=== PATIENT | male | born 1940 | race Caucasian/White ===

== ENCOUNTER 2016-09-20 07:33 | Day surgery (SDC) | payer OTHER ==
[2016-09-15 17:50] VITALS: BMI 23.5
[2016-09-20] MEDS: PHENYLEPHRINE 2.5% OPHTH SOLN 15 ML BOTTLE ONE ×3 (08:20→08:30)
[2016-09-20] MEDS: CIPROFLOXACIN 0.3% EYE DROPS 5 ML BOTTLE ONE ×3 (08:20→08:30)
[2016-09-20] MEDS: TROPICAMIDE 1% OPHTH SOLN 15 ML BOTTLE ONE ×3 (08:20→08:30)
[2016-09-20] MEDS: CYCLOPENTOLATE 2% OPHTH SOLN 2 ML BOTTLE ONE ×3 (08:20→08:30)
[2016-09-20] MEDS ORDERED: MIDAZOLAM HCL 2 MG/2 ML SINGLE DOSE VIAL ONE ×2 (09:00→09:33)
[2016-09-20 10:05] VITALS: TEMP 97.8
--- NOTE | 2016-09-20 10:19 | OP ---
DATE OF OPERATION: 09/20/2016 OPERATIVE PROCEDURE: Lens phacoemulsification with posterior chamber intraocular lens placement left eye. PREOPERATIVE DIAGNOSIS: Visually significant cataract of left eye. POSTOPERATIVE DIAGNOSIS: Visually significant cataract of left eye. SURGEON: Raad Espana M.D. ANESTHESIA: MAC PROCEDURE: The patient was brought to the operating room and placed under monitored anesthesia care by Anesthesia. A drop of tetracaine was then placed over the left eye. The patient was then prepped and draped in the usual sterile manner. A speculum was then placed over the left eye. The eye was then well irrigated with copious amounts of BSS (balanced salt solution). The operating microscope was then moved into position. A paracentesis was performed using a 15 degree blade. At this point 0.5 mL of 1% preservative-free lidocaine was injected into the anterior chamber. Amvisc Plus was then injected into the anterior chamber. A clear corneal incision was then formed using a 2.2 mm keratome. A capsulorrhexis was then performed in a continuous circular fashion beginning with a cystotome and completed with Utrata forceps. Hydrodissection was then performed using BSS on a cannula. The phaco probe was then introduced through the corneal wound and the cataract was removed using the phaco chop technique. Approximately 3 seconds of absolute phaco time was used. The remaining cortex was then removed using irrigation and aspiration with an I/A probe. The capsule was then filled with regular Amvisc and the capsule was noted to be intact. A previously selected foldable posterior chamber intraocular lens was then injected into the capsule through the corneal wound using a lens injector. It was then dialed into position using a Sinskey hook. The Amvisc was then removed using irrigation and aspiration. Miostat was then injected through the paracentesis to constrict the pupil. The paracentesis and corneal wound were then hydrated and noted to be watertight. A drop of Maxitrol was then placed over the eye. The speculum was removed and clear shield was taped over the eye. The patient tolerated the procedure well and there were no surgical complications. The patient was asked to follow up in my office the next day. RAAD ESPANA M.D. LAZARO/[id number]
[2016-09-20 10:35] VITALS: BP 112/64; PULSE 64
== END 2016-09-20 10:40 | disposition home or self-care (01) ==
LOC: FASU 07:33
PROVIDERS: ATTEND Ophthalmology
PROC: 08RK3JZ Replacement of Left Lens with Synthetic Substitute, Percutaneous Approach (ICD-10-PCS; principal; 2016-09-20 09:33)
DX: H26.8 Other specified cataract (principal)

== ENCOUNTER 2019-05-13 16:43 | Emergency (ER) | payer OTHER ==
[2019-05-13 16:59] VITALS: BP 141/65; PULSE 67; TEMP 98.3; BMI 23.5
[2019-05-13] MEDS ORDERED: DIPHTH,PERTUSS(ACELL),TET 0.5 ML DISP.SYRIN IM ONE ×2 (17:31→18:39)
--- NOTE | 2019-05-13 17:57 | PDOC ---
Documentation entered by Carmen Ford SCRIBE, acting as scribe for Bandar Syed MD. Bandar Syed MD: This documentation has been prepared by the scribeLogan Maria, SCRIBE, under my direction and personally reviewed by me in its entirety. I confirm that the documentation accurately reflects all work, treatment, procedures, and medical decision making performed by me. History of Present Illness - General Chief Complaint: Injury Stated Complaint: RT EYEBROW LACERATION Time Seen by Provider: 05/13/19 16:46 History Source: Patient - History of Present Illness Initial Comments: 05/13/19 17:40 The patient is a 78 year old male with a significant past medical history of BPH ,HTN, aortic regurgitation, and osteoporosis who presents to the emergency department s/p mechanical fall. As per patient, he states he was walking home, it was drizzling, slipped and fell on the pavement, lacerating his right eyebrow and complains of soreness to his right flank. Denies loss of consciousness. He denies any recent fevers, chills, headache or dizziness. He denies any recent nausea, vomit, diarrhea or constipation. He denies any recent chest pain or shortness of breath. Past History - Past Medical History Allergies/Adverse Reactions: Allergies Allergy/AdvReac Type Severity Reaction Status Date / Time No Known Allergies Allergy Verified 09/20/16 08:22 Home Medications: Ambulatory Orders Cholecalciferol (Vitamin D3) [Vitamin D3 -] 1,000 unit PO DAILY 05/17/16 Enalapril Maleate [Vasotec -] 10 mg PO BID 05/17/16 Finasteride 5 mg PO HS 05/17/16 Multivitamins [Multivit ([facility] Formul[facility])] 1 tab PO DAILY 05/17/16 Tamsulosin HCl [Flomax -] 0.4 mg PO HS 05/17/16 Anemia: No Asthma: No Cancer: No Cardiac Disorders: Yes (Aortic Regurgitation) CVA: No COPD: No CHF: No Dementia: No Diabetes: No GI Disorders: No Disorders: Yes (BPH) HTN: Yes Hypercholesterolemia: No Liver Disease: No Seizures: No Thyroid Disease: No - Surgical History Abdominal Surgery: Yes (Left Inguinal Hernia Repair) Appendectomy: No Cardiac Surgery: No Cholecystectomy: No Lung Surgery: No Neurologic Surgery: No Orthopedic Surgery: No - Psycho Social/Smoking Cessation Hx Smoking History: Never smoked Hx Alcohol Use: No Drug/Substance Use Hx: No Substance Use Type: None Hx Substance Use Treatment: No Review of Systems - Review of Systems Able to Perform ROS?: Yes Comments:: 05/13/19 17:40 A complete review of 10 out of 10 review of systems is taken and is negative apart from what is previously mentioned below and in the HPI. *Physical Exam - Vital Signs Last Vital Signs Temp Pulse Resp BP Pulse Ox 98.3 F 67 20 141/65 100 05/13/19 16:44 05/13/19 16:44 05/13/19 16:44 05/13/19 16:44 05/13/19 16:44 - Physical Exam 05/13/19 17:40 Vitals: Triage Vital signs reviewed General Appearance: no acute distress, well nourished well developed, Head: +2.5cm laceration to his right eyebrow. Normocephalic Eyes: Pupils equal reactive round, extraocular movement intact Ears: TM's normal bilaterally; Nose: Nares patent bilaterally;no nasal congestion Throat: Posterior oropharynx without erythema, mucous membranes moist, Neck: Supple;No Nuchal rigidity Chest Wall: Mild right chest wall tenderness, no bruising Cardiac: Regular rate and rhythm, no murmurs, no rubs, no gallops, Lungs: Clear to auscultation bilateral, good air movement bilaterally, Abdomen: Soft, nondistended, normal bowel sounds, nontender to palpation Extremities: Full range of motion to all extremities, no cyanosis, clubbing, or edema Skin: Warm and dry, no rashes or lesions, no petechiae Neuro: AOX3; Cranial Nerves 2-12 grossly c intact, Strength intact to all extremities, Sensation intact to all extremities, gait normal Psych: normal mood, normal affect Procedures - Laceration/Wound Repair Face Wound Length: to 2.5 cm Wound Explored: clean Wound's Depth, Shape: superficial Irrigated w/ Saline: Yes Betadine Prep: Yes Anesthesia: 1% Lidocaine Suture Size/Type: 6:0 Number of Sutures: 5 ED Treatment Course - RADIOLOGY Radiology Studies Ordered: Category Date Time Status HEAD CT WITHOUT CONTRAST [CT] Stat CT Scan 05/13/19 17:29 Ordered CHEST PA & LAT [RAD] Stat Radiology 05/13/19 17:30 Ordered Medical Decision Making - Medical Decision Making 05/13/19 17:57 Mechanical trip and fall landed on right ribs and right face. Small laceration to right eye normal neurovascular exam no prodrome prior to fall will update tetanus laceration sutured with good approximation patient made aware of scar Head CT chest x-ray ordered 05/13/19 18:43 Chest x-ray with no acute pathology Interpreted by fl Head CT as dictated no acute pathology Patient able to ambulate comfortably around the emergency department no complaints at this time will return to ED in 5 to 7 days for suture removal or immediately for any signs of infection strict head injury precautions discussed at length with patient Findings, the need for follow-up and strict return instructions discussed. Discharge - Discharge Information Problems reviewed: Yes Clinical Impression/Diagnosis: Laceration Minor head injury Qualifiers: Encounter type: initial encounter Qualified Code(s): S09.90XA - Unspecified injury of head, initial encounter Condition: Good Disposition: HOME - Admission No - Follow up/Referral - Patient Discharge Instructions Patient Printed Discharge Instructions: DI for Laceration Repair, DI for Closed Head Injury Additional Instructions: Keep laceration clean dry and covered. Bacitracin twice a day. Return to ED in 5 to 7 days for suture removal or immediately for any signs of infection. Regarding minor head injury return to ED immediately for any severe headache nausea vomiting or for any concerns. Follow-up with your doctor this week. - Post Discharge Activity
== END 2019-05-13 18:50 | disposition home or self-care (01) ==
LOC: FER 16:43
PROC: 3E0234Z Introduction of Serum, Toxoid and Vaccine into Muscle, Percutaneous Approach (ICD-10-PCS; principal; 2019-05-13)
PROC: 0HQ1XZZ Repair Face Skin, External Approach (ICD-10-PCS; 2019-05-13)
DX: S09.90XA Unspecified injury of head, initial encounter (principal); N40.0 Benign prostatic hyperplasia without lower urinary tract symptoms; I10 Essential (primary) hypertension; I35.1 Nonrheumatic aortic (valve) insufficiency; M81.0 Age-related osteoporosis without current pathological fracture
CPT/HCPCS: 12011-25; 70450-TC; 71046-TC-FY; 90471; 90715; 99284-25

== ENCOUNTER 2019-05-19 12:03 | Emergency (ER) | payer OTHER ==
[2019-05-19 12:10] VITALS: BP 129/70; PULSE 72; TEMP 98.1; BMI 24.2
--- NOTE | 2019-05-19 12:26 | PDOC ---
Suture Removal/Wound Check HPI - History of Present Illness Chief Complaint: Suture/Staple Removal(Here) Stated Complaint: SUTURE REMOVAL Time Seen by Provider: 05/19/19 12:14 - Onset of Previous Treatment Comment:: 05/19/19 12:25 Right upper eyelid laceration repaired [address] Syed. Wound is well- healed. [address]. No sign of infection. Sutures removed x5. Wound remained closed. No bleeding or drainage. Bacitracin applied. To continue bacitracin twice daily for 5 more days, follow- up as necessary. Fully ambulatory in no distress at discharge. Past History - Past Medical History Allergies/Adverse Reactions: Allergies Allergy/AdvReac Type Severity Reaction Status Date / Time No Known Allergies Allergy Verified 05/19/19 12:04 Home Medications: Ambulatory Orders Cholecalciferol (Vitamin D3) [Vitamin D3 -] 1,000 unit PO DAILY 05/17/16 Enalapril Maleate [Vasotec -] 10 mg PO BID 05/17/16 Finasteride 5 mg PO HS 05/17/16 Multivitamins [Multivit ([facility] Formul[facility])] 1 tab PO DAILY 05/17/16 Tamsulosin HCl [Flomax -] 0.4 mg PO HS 05/17/16 Anemia: No Asthma: No Cancer: No Cardiac Disorders: Yes (Aortic Regurgitation) CVA: No COPD: No CHF: No Dementia: No Diabetes: No GI Disorders: No Disorders: Yes (BPH) HTN: Yes Hypercholesterolemia: No Liver Disease: No Seizures: No Thyroid Disease: No - Surgical History Abdominal Surgery: Yes (Left Inguinal Hernia Repair) Appendectomy: No Cardiac Surgery: No Cholecystectomy: No Lung Surgery: No Neurologic Surgery: No Orthopedic Surgery: No - Immunization History Immunization Up to Date: Yes - Psycho Social/Smoking Cessation Hx Smoking History: Never smoked Have you smoked in the past 12 months: No Information on smoking cessation initiated: No Hx Alcohol Use: No Drug/Substance Use Hx: No Substance Use Type: None Hx Substance Use Treatment: No *Physical Exam - Vital Signs Last Vital Signs Temp Pulse Resp BP Pulse Ox 98.1 F 72 20 129/70 98 05/19/19 12:04 05/19/19 12:04 05/19/19 12:04 05/19/19 12:04 05/19/19 12:04 Discharge - Discharge Information Problems reviewed: Yes Clinical Impression/Diagnosis: Visit for suture removal Condition: Improved Disposition: HOME - Admission No - Follow up/Referral - Patient Discharge Instructions Patient Printed Discharge Instructions: DI for Suture Removal Additional Instructions: Continue gentle washing of the area, avoid excessive scrubbing or pressure. Apply antibiotic ointment twice daily for 5 more days. Recheck if bleeding or sign of infection. - Post Discharge Activity
== END 2019-05-19 12:31 | disposition home or self-care (01) ==
LOC: FER 12:03
DX: Z48.02 Encounter for removal of sutures (principal)
CPT/HCPCS: 99281-25

== ENCOUNTER 2022-04-09 15:32 | Emergency (ER) | payer OTHER ==
[2022-04-09 15:42] VITALS: BP 156/74; PULSE 73; RESP 20; TEMP 98.2; BMI 21.6
== END 2022-04-09 16:12 | disposition home or self-care (01) ==
LOC: FER 15:32
DX: S01.511A Laceration without foreign body of lip, initial encounter (principal); W10.8XXA Fall (on) (from) other stairs and steps, initial encounter
CPT/HCPCS: 99281-25

== ENCOUNTER 2023-12-04 14:19 | Inpatient (IN) | payer OTHER ==
[2023-12-04] MEDS: SODIUM CHLORIDE 0.9% 500 ML INFUS.BAG IV ONE (15:22)
[2023-12-04] MEDS: ONDANSETRON 4 MG/2 ML VIAL IVPUSH ONE ×2 (15:24→19:30)
[2023-12-04] MEDS ORDERED: ONDANSETRON 4 MG/2 ML VIAL ONE ×2 (15:24→19:26)
[2023-12-04 15:43] LABS: HEMATOCRIT 39.7 % (35.4-49); HEMOGLOBIN 12.8 G/dL (11.7-16.9); MCH 31.7 pg (25.7-33.7); MCHC 32.1 g/dl (32.0-35.9); MEAN CELL VOLUME 98.4 fl (80-96); PLATELET COUNT 155.2 10^3/uL (134-434); RBC 4.03 10^6/uL (4.00-5.60); RDW 13.8 % (11.9-15.9); WHITE BLOOD COUNT 7.4 10^3/uL (4.0-10.8)
[2023-12-04] MEDS ORDERED: FAMOTIDINE 20 MG/50 ML IVPB 0 MG/0 ML MG IVPB ONE (15:43)
[2023-12-04] MEDS ORDERED: FAMOTIDINE 20 MG/50 ML IVPB 20 MG/50 ML MG IVPB ONE ×2 (15:43→15:47)
[2023-12-04] MEDS: FAMOTIDINE 20 MG/50 ML IVPB 20 MG/50 ML MG IVPB ONE (15:44)
[2023-12-04 15:49] LABS: ALBUMIN 4.2 g/dl (3.4-5.0); BILIRUBIN,TOTAL 0.8 mg/dl (0.2-1); CALCIUM 9.7 mg/dl (8.5-10.1); CREATININE 0.8 mg/dl (0.6-1.3); POTASSIUM 3.6 mmol/L (3.5-5.1); TOT PROT 6.8 g/dl (6.4-8.2)
[2023-12-04 15:51] LABS: PLATELET ESTIMATE ADEQUATE
[2023-12-04] MEDS: CIPROFLOXACIN 400 MG/D5W 400 MG/200 ML IVPB IVPB ONE (22:01)
[2023-12-04] MEDS ORDERED: ACETAMINOPHEN 1000 MG/100 ML BAG IVPB PRN (22:04)
[2023-12-04] MEDS: SODIUM PHOSPHATE/NA BIPHOS 133 ML ENEMA PR ONE (22:05)
[2023-12-04 22:14] LABS: MAGNESIUM 1.9 mg/dL (1.8-2.4); PHOSPHOROUS 3.4 (2.5-4.9)
[2023-12-04] MEDS: D5-NS + 20 MEQ KCL - 20 MEQ/1,000 ML INFUS.BAG IV SCH (23:27)
[2023-12-05 08:13] LABS: INR 1.21 (0.83-1.09); PROTHROMBIN TIME (PATIENT) 13.7 SEC (9.7-13.0)
[2023-12-05 08:15] LABS: ACTIVATED PTT 36.4 SECONDS (25.2-36.5)
[2023-12-05] MEDS ORDERED: MAGNESIUM CITRATE 300 ML BOTTLE PO ONE (08:17)
[2023-12-05 08:33] LABS: CALCIUM 8.8 mg/dl (8.5-10.1); CREATININE 0.8 mg/dl (0.6-1.3); POTASSIUM 3.4 mmol/L (3.5-5.1)
[2023-12-05] MEDS ORDERED: KCL 10 MEQ IVPB 10 MEQ/100 ML INFUS.BAG IVPB SCH (09:00)
[2023-12-05] MEDS ORDERED: cefTRIAXone SODIUM 1 GM VIAL ONE (09:41)
[2023-12-05] MEDS: CEFTRIAXONE 1 GM in DEXTROSE 5%-WATER - 50 ML IVPB SCH (09:46)
[2023-12-05] MEDS: SIMETHICONE 80 MG TAB.CHEW (FP) PO SCH (09:47)
[2023-12-05] MEDS: ENALAPRIL MALEATE 10 MG TABLET PO SCH (09:47)
[2023-12-05] MEDS: MAGNESIUM CITRATE 300 ML BOTTLE PO ONE (09:47)
[2023-12-05] MEDS: LEVOTHYROXINE NA 25 MCG TABLET (FP) PO SCH (09:47)
[2023-12-05 10:57] LABS: BASO % 0.4 % (0-2.0); EOS % 3.2 % (0-4.5); HEMATOCRIT 31.6 % (35.4-49); HEMOGLOBIN 10.8 GM/dL (11.7-16.9); LYMPH % 5.6 % (8-40); MCH 33.3 pg (25.7-33.7); MCHC 34.2 g/dl (32.0-35.9); MEAN CELL VOLUME 97.3 fl (80-96); MEAN PLT VOLUME 9.4 fl (7.5-11.1); MONO % 7.9 % (3.8-10.2); NEUT % 82.9 % (42.8-82.8); PLATELET COUNT 126 10^3/uL (134-434); RBC 3.25 M/mm3 (4.00-5.60); RDW 13.2 % (11.9-15.9); WHITE BLOOD COUNT 6.9 K/mm3 (4.0-10.0)
[2023-12-05] MEDS: HEPARIN NA (PORCINE) 5,000 UNITS/ML 1ML VIAL SQ SCH (13:42)
[2023-12-05] MEDS: MINERAL OIL ENEMA 133 ML ENEMA RC ONE (17:13)
[2023-12-05] MEDS: SENNOSIDES 8.6MG TABLET (FP) PO SCH (21:03)
[2023-12-05] MEDS: FINASTERIDE 5 MG TABLET (FP) PO SCH (21:04)
[2023-12-05] MEDS ORDERED: ACETAMINOPHEN 325 MG TABLET (FP) PO PRN ×2 (22:00)
[2023-12-06 07:50] LABS: HEMOGLOBIN 11.9 G/dL (11.7-16.9); MCH 33.2 pg (25.7-33.7); MEAN CELL VOLUME 97.9 fl (80-96); MEAN PLT VOLUME 9.2 fl (7.5-11.1); PLATELET COUNT 129.4 10^3/uL (134-434); RBC 3.58 10^6/uL (4.00-5.60); RDW 13.7 % (11.9-15.9); WHITE BLOOD COUNT 5.8 10^3/uL (4.0-10.8)
[2023-12-06 09:20] LABS: CALCIUM 9.2 mg/dl (8.5-10.1); CREATININE 0.8 mg/dl (0.6-1.3); PHOSPHOROUS 2.8 (2.5-4.9); POTASSIUM 3.4 mmol/L (3.5-5.1)
[2023-12-06] MEDS: SENNOSIDES 8.6MG TABLET (FP) PO SCH (10:46)
[2023-12-06] MEDS: DOCUSATE SODIUM 100 MG CAPSULE (FP) PO SCH (10:53)
[2023-12-06] MEDS: SODIUM CHLORIDE 1,000 ML IV SCH (11:28)
[2023-12-06] MEDS: TRIMETHOBENZAMIDE HCL 200MG/2ML INJ IM PRN (14:27)
[2023-12-06] MEDS: POLYETHYLENE GLYCOL (HEALTHYLAX) 3350 17 GM PACKET PO SCH (21:45)
[2023-12-07 07:21] VITALS: BMI 20.7
[2023-12-07 09:11] LABS: INR 1.27 (0.83-1.09); PROTHROMBIN TIME (PATIENT) 14.5 SEC (9.7-13.0)
[2023-12-07 09:14] LABS: BASO % 0.1 % (0-2.0); EOS % 0.1 % (0-4.5); HEMATOCRIT 33.5 % (35.4-49); HEMOGLOBIN 11.4 GM/dL (11.7-16.9); LYMPH % 3.2 % (8-40); MCH 33.4 pg (25.7-33.7); MCHC 34.2 g/dl (32.0-35.9); MEAN CELL VOLUME 97.8 fl (80-96); MEAN PLT VOLUME 9.7 fl (7.5-11.1); MONO % 7.5 % (3.8-10.2); NEUT % 89.1 % (42.8-82.8); PLATELET COUNT 112 10^3/uL (134-434); RBC 3.42 M/mm3 (4.00-5.60); RDW 13.2 % (11.9-15.9); WHITE BLOOD COUNT 8.7 K/mm3 (4.0-10.0)
[2023-12-07 09:31] LABS: CHLORIDE 106 mmol/L (98-107); SODIUM 140 mmol/L (136-145)
[2023-12-07 09:32] LABS: POTASSIUM 2.8 mmol/L (3.5-5.1)
[2023-12-07 09:38] LABS: ALBUMIN 3.2 g/dl (3.4-5.0); ANION GAP 8 mmol/L (4-13); BLOOD UREA NITROGEN 25.1 mg/dL (7-18); CALCIUM 8.5 mg/dL (8.5-10.1); CO2 27 mmol/L (21-32); GLUCOSE,RANDOM 116 mg/dL (74-106); MAGNESIUM 2.1 mg/dL (1.8-2.4)
[2023-12-07 09:39] LABS: SGOT/AST 21 U/L (15-37); SGPT/ALT 17 U/L (13-61)
[2023-12-07 09:41] LABS: BILIRUBIN,TOTAL 0.7 mg/dL (0.2-1); CREATININE 0.7 mg/dL (0.55-1.3); TOT PROT 6.1 g/dl (6.4-8.2)
[2023-12-07 09:42] LABS: ALK PHOS 62 U/L (45-117); PHOSPHOROUS 3.1 mg/dL (2.5-4.9)
[2023-12-07] MEDS: KCL 10 MEQ IVPB 10 MEQ/100 ML INFUS.BAG IVPB SCH (12:19)
[2023-12-07] MEDS: POTASSIUM CHLORIDE ORAL LIQUID 20 MEQ/15 ML PO ONE (22:20)
[2023-12-08 10:08] LABS: BASO % 0.1 % (0-2.0); EOS % 0.1 % (0-4.5); HEMOGLOBIN 10.5 GM/dL (11.7-16.9); LYMPH % 4.2 % (8-40); MCH 33.1 pg (25.7-33.7); MCHC 33.9 g/dl (32.0-35.9); MEAN CELL VOLUME 97.6 fl (80-96); MEAN PLT VOLUME 9.9 fl (7.5-11.1); MONO % 6.8 % (3.8-10.2); NEUT % 88.8 % (42.8-82.8); PLATELET COUNT 96 10^3/uL (134-434); RBC 3.18 M/mm3 (4.00-5.60); RDW 12.8 % (11.9-15.9); WHITE BLOOD COUNT 6.5 K/mm3 (4.0-10.0)
[2023-12-08 10:35] LABS: CHLORIDE 110 mmol/L (98-107); SODIUM 143 mmol/L (136-145)
[2023-12-08 10:40] LABS: POTASSIUM 2.8 mmol/L (3.5-5.1)
[2023-12-08 11:01] LABS: ALBUMIN 2.8 g/dl (3.4-5.0); ANION GAP 8 mmol/L (4-13); CO2 25 mmol/L (21-32); MAGNESIUM 2.1 mg/dL (1.8-2.4)
[2023-12-08 11:02] LABS: BLOOD UREA NITROGEN 23.6 mg/dL (7-18); GLUCOSE,RANDOM 123 mg/dL (74-106)
[2023-12-08 11:04] LABS: SGPT/ALT 17 U/L (13-61)
[2023-12-08 11:05] LABS: CREATININE 0.6 mg/dL (0.55-1.3); SGOT/AST 21 U/L (15-37)
[2023-12-08 11:06] LABS: BILIRUBIN,TOTAL 0.7 mg/dL (0.2-1); TOT PROT 5.4 g/dl (6.4-8.2)
[2023-12-08 11:07] LABS: ALK PHOS 58 U/L (45-117)
[2023-12-08] MEDS: KCL 10 MEQ IVPB 10 MEQ/100 ML INFUS.BAG IVPB SCH (12:45)
[2023-12-08] MEDS: POTASSIUM CHLORIDE ORAL LIQUID 20 MEQ/15 ML PO ONE (12:56)
[2023-12-08] MEDS ORDERED: SENNOSIDES 8.6MG TABLET (FP) PO PRN (13:02)
[2023-12-08] MEDS: ONDANSETRON 4 MG/2 ML VIAL IVPUSH PRN (17:41)
[2023-12-09] MEDS ORDERED: MAG HYDROX/AL HYDROX/SIMETH 30 ML UNIT-DOSE CUP PO PRN (02:25)
[2023-12-09 10:42] LABS: POTASSIUM 3.1 mmol/L (3.5-5.1)
[2023-12-09 10:44] LABS: BLOOD UREA NITROGEN 22.9 mg/dL (7-18); CALCIUM 8.1 mg/dL (8.5-10.1)
[2023-12-09 10:48] LABS: CREATININE 0.6 mg/dL (0.55-1.3)
[2023-12-09] MEDS: POTASSIUM CHLORIDE TABS 20 MEQ TABLET.ER (FP) PO ONE (12:28)
[2023-12-09] MEDS: KCL 10 MEQ IVPB 10 MEQ/100 ML INFUS.BAG IVPB SCH (12:28)
[2023-12-10 09:45] LABS: HEMATOCRIT 32.9 % (35.4-49); HEMOGLOBIN 11.6 GM/dL (11.7-16.9); MCH 33.6 pg (25.7-33.7); MCHC 35.3 g/dl (32.0-35.9); MEAN PLT VOLUME 10.2 fl (7.5-11.1); PLATELET COUNT 99 10^3/uL (134-434); RBC 3.47 M/mm3 (4.00-5.60); WHITE BLOOD COUNT 5.3 K/mm3 (4.0-10.0)
[2023-12-10 09:58] LABS: POTASSIUM 3.5 mmol/L (3.5-5.1)
[2023-12-10 10:04] LABS: ALBUMIN 2.6 g/dl (3.4-5.0); BLOOD UREA NITROGEN 20.2 mg/dL (7-18); CALCIUM 8.2 mg/dL (8.5-10.1)
[2023-12-10 10:07] LABS: CREATININE 0.5 mg/dL (0.55-1.3)
[2023-12-10 10:08] LABS: BILIRUBIN,TOTAL 0.8 mg/dL (0.2-1); TOT PROT 5.2 g/dl (6.4-8.2)
[2023-12-11 10:34] LABS: BASO % 0.1 % (0-2.0); EOS % 3.1 % (0-4.5); MCH 33.5 pg (25.7-33.7); MCHC 35.4 g/dl (32.0-35.9); MEAN CELL VOLUME 94.4 fl (80-96); MEAN PLT VOLUME 9.9 fl (7.5-11.1); MONO % 7.3 % (3.8-10.2); NEUT % 84.5 % (42.8-82.8); PLATELET COUNT 120 10^3/uL (134-434); RDW 12.7 % (11.9-15.9); WHITE BLOOD COUNT 6.1 K/mm3 (4.0-10.0)
[2023-12-11 10:38] LABS: INR 1.18 (0.83-1.09); PROTHROMBIN TIME (PATIENT) 13.5 SEC (9.7-13.0)
[2023-12-11] MEDS: POLYETHYLENE GLYCOL 3350 255 GM BTL PO ONE (11:00)
[2023-12-11 11:01] LABS: POTASSIUM 3.3 mmol/L (3.5-5.1)
[2023-12-11 11:12] LABS: CALCIUM 7.8 mg/dL (8.5-10.1)
[2023-12-11 11:13] LABS: ALBUMIN 2.7 g/dl (3.4-5.0); BLOOD UREA NITROGEN 18.5 mg/dL (7-18)
[2023-12-11 11:16] LABS: CREATININE 0.6 mg/dL (0.55-1.3)
[2023-12-11 11:17] LABS: BILIRUBIN,TOTAL 0.8 mg/dL (0.2-1); TOT PROT 5.2 g/dl (6.4-8.2)
[2023-12-11] MEDS: LACTATED RINGERS SOLUTION 1,000 ML/1,000 ML INFUS.BAG IV SCH (13:00)
[2023-12-11] MEDS: NEOMYCIN SO4 500 MG TABLET PO SCH (13:12)
[2023-12-11] MEDS: metroNIDAZOLE 500 MG TABLET PO SCH (13:12)
[2023-12-11] MEDS: KCL 10 MEQ IVPB 10 MEQ/100 ML INFUS.BAG IVPB SCH (13:19)
[2023-12-11] MEDS: BISACODYL 5 MG TABLET.DR (FP) PO ONE (14:31)
[2023-12-12] MEDS ORDERED: BENZOIN/ALOE VERA/STORAX/TOLU 58 ML BOTTLE ONE (08:58)
[2023-12-12 09:53] LABS: BASO % 0.1 % (0-2.0); EOS % 4.6 % (0-4.5); HEMATOCRIT 32.6 % (35.4-49); HEMOGLOBIN 11.6 GM/dL (11.7-16.9); INR 1.24 (0.83-1.09); LYMPH % 4.1 % (8-40); MCH 33.8 pg (25.7-33.7); MCHC 35.6 g/dl (32.0-35.9); MEAN CELL VOLUME 95.1 fl (80-96); MEAN PLT VOLUME 9.9 fl (7.5-11.1); MONO % 8.1 % (3.8-10.2); NEUT % 83.1 % (42.8-82.8); PLATELET COUNT 117 10^3/uL (134-434); PROTHROMBIN TIME (PATIENT) 13.9 SEC (9.7-13.0); RBC 3.42 M/mm3 (4.00-5.60); RDW 13.1 % (11.9-15.9); WHITE BLOOD COUNT 6.7 K/mm3 (4.0-10.0)
[2023-12-12] MEDS ORDERED: INDOCYANINE GREEN 25 MG/10 ML VIAL IVPUSH ONE (09:54)
[2023-12-12] MEDS ORDERED: cefOXitin SODIUM 2 GM VIAL (RESTRICTED TO ID) IVPB ONE ×2 (09:55→15:00)
[2023-12-12] MEDS ORDERED: BUPIVACAINE HCL/PF 0.25% (2.5MG/ML) 10 ML VIAL ONE (09:55)
[2023-12-12] MEDS ORDERED: PROPOFOL 20 ML ONE (10:13)
[2023-12-12 10:17] LABS: ALBUMIN 2.5 g/dl (3.4-5.0); CALCIUM 7.9 mg/dL (8.5-10.1)
[2023-12-12 10:18] LABS: MAGNESIUM 1.8 mg/dL (1.8-2.4)
[2023-12-12 10:20] LABS: BLOOD UREA NITROGEN 18.5 mg/dL (7-18)
[2023-12-12 10:21] LABS: CREATININE 0.5 mg/dL (0.55-1.3)
[2023-12-12 10:22] LABS: BILIRUBIN,TOTAL 0.7 mg/dL (0.2-1); TOT PROT 4.8 g/dl (6.4-8.2)
[2023-12-12] MEDS ORDERED: SUCCINYLCHOLINE CHLORIDE 200 MG/10 ML SYRINGE ONE (10:27)
[2023-12-12] MEDS ORDERED: ROCURONIUM BROMIDE 50 MG/5 ML SYRINGE ONE ×2 (10:27→12:18)
[2023-12-12] MEDS: cefOXitin SODIUM 2 GM VIAL (RESTRICTED TO ID) IVPB ONE (10:57)
[2023-12-12] MEDS: BUPIVACAINE HCL/PF 0.25% (2.5MG/ML) 10 ML VIAL IJ ONE ×2 (11:35)
[2023-12-12] MEDS ORDERED: ceFAZolin SODIUM 1 GM VIAL ONE (14:53)
[2023-12-12] MEDS ORDERED: HYDROCORTISONE SOD SUCCINATE 100 MG/2 ML VIAL ONE (15:36)
[2023-12-12] MEDS ORDERED: HYDROmorphone HCl 2 MG/ML VIAL ONE (15:37)
[2023-12-12] MEDS ORDERED: ONDANSETRON 4 MG/2 ML VIAL ONE (15:41)
[2023-12-12] MEDS ORDERED: SUGAMMADEX SODIUM 200 MG/2 ML VIAL ONE (16:13)
[2023-12-12] MEDS ORDERED: ONDANSETRON 4 MG/2 ML VIAL IVPUSH PRN (17:38)
[2023-12-12] MEDS ORDERED: oxyCODONE HCL 5 MG TABLET PO PRN ×2 (17:38)
[2023-12-12] MEDS: KCL 10 MEQ IVPB 10 MEQ/100 ML INFUS.BAG IVPB SCH ×2 (18:00→18:27)
[2023-12-12] MEDS: ENALAPRIL MALEATE 10 MG TABLET PO SCH (21:46)
[2023-12-12] MEDS: LACTATED RINGERS SOLUTION 1,000 ML/1,000 ML INFUS.BAG IV SCH (21:46)
[2023-12-12] MEDS: FINASTERIDE 5 MG TABLET (FP) PO SCH (21:47)
[2023-12-12] MEDS: ACETAMINOPHEN 1000 MG/100 ML BAG IVPB SCH (22:04)
[2023-12-12] MEDS: CEFOXITIN SODIUM 2 GM in DEXTROSE 5%-WATER - 100 ML IVPB SCH (22:07)
[2023-12-12 23:33] VITALS: RESP 18
[2023-12-13] MEDS: LEVOTHYROXINE NA 25 MCG TABLET (FP) PO SCH (06:26)
[2023-12-13 09:46] LABS: BASO % 0.2 % (0-2.0); EOS % 1.7 % (0-4.5); HEMATOCRIT 34.4 % (35.4-49); HEMOGLOBIN 11.8 GM/dL (11.7-16.9); LYMPH % 3.1 % (8-40); MCHC 34.2 g/dl (32.0-35.9); MEAN CELL VOLUME 96.5 fl (80-96); MEAN PLT VOLUME 9.4 fl (7.5-11.1); MONO % 7.3 % (3.8-10.2); NEUT % 87.7 % (42.8-82.8); PLATELET COUNT 137 10^3/uL (134-434); RBC 3.56 M/mm3 (4.00-5.60); RDW 13.1 % (11.9-15.9); WHITE BLOOD COUNT 7.2 K/mm3 (4.0-10.0)
[2023-12-13 11:16] LABS: POTASSIUM 3.3 mmol/L (3.5-5.1)
[2023-12-13] MEDS: ENOXAPARIN NA (PORCINE) 40 MG/0.4 ML DISP.SYRIN SQ SCH (11:17)
[2023-12-13 11:24] LABS: ALBUMIN 2.3 g/dl (3.4-5.0)
[2023-12-13 11:26] LABS: BLOOD UREA NITROGEN 17.6 mg/dL (7-18)
[2023-12-13 11:27] LABS: CREATININE 1.1 mg/dL (0.55-1.3)
[2023-12-13 11:29] LABS: BILIRUBIN,TOTAL 0.7 mg/dL (0.2-1); TOT PROT 4.6 g/dl (6.4-8.2)
[2023-12-13 11:39] LABS: CALCIUM 7.8 mg/dL (8.5-10.1)
[2023-12-13 11:41] LABS: MAGNESIUM 1.8 mg/dL (1.8-2.4)
[2023-12-13] MEDS: POTASSIUM CHLORIDE ORAL LIQUID 20 MEQ/15 ML PO ONE (13:23)
[2023-12-13] MEDS: POTASSIUM CHLORIDE TABS 20 MEQ TABLET.ER (FP) PO SCH (22:40)
[2023-12-13] MEDS: ACETAMINOPHEN 500 MG TABLET (FP) PO SCH (22:40)
[2023-12-13] MEDS: KCL 10 MEQ IVPB 10 MEQ/100 ML INFUS.BAG IVPB SCH (23:53)
[2023-12-14 09:35] LABS: BASO % 0.1 % (0-2.0); EOS % 2.6 % (0-4.5); HEMATOCRIT 31.1 % (35.4-49); HEMOGLOBIN 10.7 GM/dL (11.7-16.9); LYMPH % 3.1 % (8-40); MCH 33.6 pg (25.7-33.7); MCHC 34.4 g/dl (32.0-35.9); MEAN CELL VOLUME 97.7 fl (80-96); MEAN PLT VOLUME 8.9 fl (7.5-11.1); MONO % 7.6 % (3.8-10.2); NEUT % 86.6 % (42.8-82.8); PLATELET COUNT 128 10^3/uL (134-434); RBC 3.18 M/mm3 (4.00-5.60); RDW 13.3 % (11.9-15.9); WHITE BLOOD COUNT 6.1 K/mm3 (4.0-10.0)
[2023-12-14 09:56] LABS: POTASSIUM 3.6 mmol/L (3.5-5.1)
[2023-12-14 10:04] LABS: CREATININE 0.6 mg/dL (0.55-1.3)
[2023-12-14] MEDS: TAMSULOSIN HCL 0.4 MG CAP PO ONE (13:52)
[2023-12-14] MEDS ORDERED: TAMSULOSIN HCL 0.4 MG CAP PO SCH (16:40)
[2023-12-14] MEDS: CEFOXITIN SODIUM 2 GM in DEXTROSE 5%-WATER 100 ML IVPB SCH (18:03)
[2023-12-14] MEDS: TAMSULOSIN HCL 0.4 MG CAP PO SCH (18:11)
[2023-12-15 08:32] LABS: BASO % 0.3 % (0-2.0); EOS % 5.3 % (0-4.5); HEMATOCRIT 29.5 % (35.4-49); HEMOGLOBIN 10.1 GM/dL (11.7-16.9); LYMPH % 3.8 % (8-40); MCH 33.5 pg (25.7-33.7); MCHC 34.4 g/dl (32.0-35.9); MEAN CELL VOLUME 97.2 fl (80-96); MEAN PLT VOLUME 8.7 fl (7.5-11.1); MONO % 8.6 % (3.8-10.2); PLATELET COUNT 133 10^3/uL (134-434); RBC 3.03 M/mm3 (4.00-5.60); RDW 13.2 % (11.9-15.9); WHITE BLOOD COUNT 5.1 K/mm3 (4.0-10.0)
[2023-12-15 08:40] LABS: POTASSIUM 3.5 mmol/L (3.5-5.1)
[2023-12-15 08:48] LABS: BLOOD UREA NITROGEN 15.3 mg/dL (7-18); MAGNESIUM 1.8 mg/dL (1.8-2.4)
[2023-12-15 08:50] LABS: CALCIUM 7.9 mg/dL (8.5-10.1)
[2023-12-15 08:51] LABS: CREATININE 0.6 mg/dL (0.55-1.3)
[2023-12-15] MEDS: CEFOXITIN SODIUM 2 GM in DEXTROSE 5%-WATER 100 ML IVPB SCH (18:18)
[2023-12-16 09:13] LABS: BASO % 0.3 % (0-2.0); EOS % 3.2 % (0-4.5); HEMATOCRIT 31.5 % (35.4-49); HEMOGLOBIN 10.9 GM/dL (11.7-16.9); LYMPH % 3.9 % (8-40); MCH 33.8 pg (25.7-33.7); MCHC 34.7 g/dl (32.0-35.9); MEAN CELL VOLUME 97.3 fl (80-96); MEAN PLT VOLUME 8.4 fl (7.5-11.1); MONO % 7.3 % (3.8-10.2); NEUT % 85.3 % (42.8-82.8); PLATELET COUNT 153 10^3/uL (134-434); RBC 3.23 M/mm3 (4.00-5.60); RDW 13.6 % (11.9-15.9); WHITE BLOOD COUNT 5.4 K/mm3 (4.0-10.0)
[2023-12-16 09:33] LABS: POTASSIUM 3.7 mmol/L (3.5-5.1)
[2023-12-16 09:37] LABS: BLOOD UREA NITROGEN 10.4 mg/dL (7-18); MAGNESIUM 1.8 mg/dL (1.8-2.4)
[2023-12-16 09:40] LABS: CREATININE 0.6 mg/dL (0.55-1.3)
[2023-12-16 09:41] LABS: CALCIUM 7.6 mg/dL (8.5-10.1)
[2023-12-16] MEDS: PSYLLIUM 5.85 GM PACKET PO SCH (14:52)
[2023-12-16] MEDS ORDERED: SENNOSIDES 8.6MG TABLET (FP) PO PRN (16:02)
[2023-12-16] MEDS: DOCUSATE SODIUM 100 MG CAPSULE (FP) PO SCH (22:05)
[2023-12-17] MEDS: ACETAMINOPHEN 1000 MG/100 ML BAG IVPB ONE (03:49)
[2023-12-17 09:39] LABS: BASO % 0.3 % (0-2.0); EOS % 5.1 % (0-4.5); HEMATOCRIT 30.2 % (35.4-49); HEMOGLOBIN 10.4 GM/dL (11.7-16.9); LYMPH % 6.9 % (8-40); MCH 33.7 pg (25.7-33.7); MCHC 34.3 g/dl (32.0-35.9); MEAN CELL VOLUME 98.2 fl (80-96); MEAN PLT VOLUME 8.5 fl (7.5-11.1); MONO % 9.1 % (3.8-10.2); NEUT % 78.6 % (42.8-82.8); PLATELET COUNT 156 10^3/uL (134-434); RBC 3.07 M/mm3 (4.00-5.60); RDW 13.9 % (11.9-15.9); WHITE BLOOD COUNT 4.3 K/mm3 (4.0-10.0)
[2023-12-17 10:07] LABS: POTASSIUM 4.3 mmol/L (3.5-5.1)
[2023-12-17 10:08] LABS: CALCIUM 7.8 mg/dL (8.5-10.1)
[2023-12-17 10:09] LABS: BLOOD UREA NITROGEN 11.3 mg/dL (7-18)
[2023-12-17 10:12] LABS: CREATININE 0.5 mg/dL (0.55-1.3)
[2023-12-18 08:36] LABS: BASO % 0.5 % (0-2.0); EOS % 4.6 % (0-4.5); HEMOGLOBIN 10.8 GM/dL (11.7-16.9); LYMPH % 5.6 % (8-40); MCH 33.8 pg (25.7-33.7); MCHC 34.9 g/dl (32.0-35.9); MEAN CELL VOLUME 96.7 fl (80-96); MEAN PLT VOLUME 8.2 fl (7.5-11.1); MONO % 8.9 % (3.8-10.2); NEUT % 80.4 % (42.8-82.8); PLATELET COUNT 188 10^3/uL (134-434); RBC 3.21 M/mm3 (4.00-5.60); RDW 13.6 % (11.9-15.9); WHITE BLOOD COUNT 4.5 K/mm3 (4.0-10.0)
[2023-12-18 08:55] LABS: POTASSIUM 4.1 mmol/L (3.5-5.1)
[2023-12-18 09:00] LABS: CALCIUM 8.1 mg/dL (8.5-10.1)
[2023-12-18 09:01] LABS: BLOOD UREA NITROGEN 13.2 mg/dL (7-18)
[2023-12-18 09:04] LABS: CREATININE 0.5 mg/dL (0.55-1.3)
[2023-12-18 15:17] VITALS: BP 125/63; PULSE 101; TEMP 97.7
== END 2023-12-19 03:22 | DRG 330 ==
LOC: FER 14:19 → INTOOBSV 19:35 → FM/S 19:35 → OBSVTOIN 12-06 16:10 → J8W 12-07 05:15
PROVIDERS: ADMIT Internal Medicine; ATTEND Nurse Practitioner Acute Care
PROC: 0DJD8ZZ Inspection of Lower Intestinal Tract, Via Natural or Artificial Opening Endoscopic (ICD-10-PCS; 2023-12-07)
PROC: 0D9P80Z Drainage of Rectum with Drainage Device, Via Natural or Artificial Opening Endoscopic (ICD-10-PCS; 2023-12-07)
PROC: 8E0W4CZ Robotic Assisted Procedure of Trunk Region, Percutaneous Endoscopic Approach (ICD-10-PCS; 2023-12-12)
PROC: 0DTN4ZZ Resection of Sigmoid Colon, Percutaneous Endoscopic Approach (ICD-10-PCS; principal; 2023-12-12 10:30)
DX: K56.2 Volvulus (principal); E46 Unspecified protein-calorie malnutrition; I10 Essential (primary) hypertension; E03.9 Hypothyroidism, unspecified; N40.0 Benign prostatic hyperplasia without lower urinary tract symptoms; Z68.20 Body mass index [BMI] 20.0-20.9, adult; E87.6 Hypokalemia; I35.1 Nonrheumatic aortic (valve) insufficiency; K59.09 Other constipation; K62.89 Other specified diseases of anus and rectum
CPT/HCPCS: 36415; 74018-TC-FY; 74019-TC-FY; 74176-TC; 80048; 80053; 83690; 83735; 84100; 85025; 85027; 85610; 85730; 86140; 86850; 86900; 86901; 88304-TC; 88307-TC; 93005; 93010; 93306-TC; 94760; 97116-GP; 97162-GP; 99285-25; G0378; J0131; J1644

== ENCOUNTER 2024-02-06 10:15 | Inpatient (IN) | payer OTHER ==
[2024-02-06 11:07] LABS: HEMATOCRIT 35.1 % (35.4-49); HEMOGLOBIN 11.5 G/dL (11.7-16.9); MCH 32.7 pg (25.7-33.7); MCHC 32.8 g/dl (32.0-35.9); MEAN CELL VOLUME 99.3 fl (80-96); MEAN PLT VOLUME 8.9 fl (7.5-11.1); PLATELET COUNT 225.1 10^3/uL (134-434); RBC 3.53 10^6/uL (4.00-5.60); RDW 14.4 % (11.9-15.9); WHITE BLOOD COUNT 6.9 10^3/uL (4.0-10.8)
[2024-02-06 11:12] LABS: ALBUMIN 3.2 g/dl (3.4-5.0); BILIRUBIN,TOTAL 0.5 mg/dl (0.2-1); CALCIUM 8.4 mg/dl (8.5-10.1); CREATININE 0.8 mg/dl (0.6-1.3); MAGNESIUM 1.9 mg/dL (1.8-2.4); PHOSPHOROUS 2.8 (2.5-4.9); POTASSIUM 3.5 mmol/L (3.5-5.1); TOT PROT 6.2 g/dl (6.4-8.2)
[2024-02-06 11:15] LABS: INR 1.31 (0.83-1.09); PROTHROMBIN TIME (PATIENT) 14.8 SEC (9.7-13.0)
[2024-02-06 11:18] LABS: ACTIVATED PTT 35.9 SECONDS (25.2-36.5)
[2024-02-06 12:09] LABS: N-TERMINAL BNP 1916.3 pg/ml (5-450)
[2024-02-06] MEDS ORDERED: HEPARIN NA (PORCINE) 5,000 UNITS/ML 1ML VIAL IVPUSH PRN ×3 (14:51→15:14)
[2024-02-06] MEDS: HEPARIN NA (PORCINE) 5,000 UNITS/ML 1ML VIAL IVPUSH ONE (15:00)
[2024-02-06] MEDS: HEPARIN INFUSION - 25,000 UNITS/500 ML INFUS.BAG IVPB SCH ×2 (15:15→15:24)
[2024-02-07 00:55] LABS: HIV INTERPRETATION NEGATIVE (NEGATIVE)
[2024-02-07] MEDS ORDERED: MAGNESIUM SULF 50% (8.12 MEQ/2 ML-1 GM VIAL) IVPB ONE (06:20)
[2024-02-07] MEDS: LEVOTHYROXINE NA 25 MCG TABLET (FP) PO SCH (06:54)
[2024-02-07] MEDS: POTASSIUM CHLORIDE TABS 10 MEQ TABLET.ER (FP) PO ONE (06:54)
[2024-02-07] MEDS: INSULIN ASPART SLIDING SCALE (NOVOLOG) 1 VIAL SQ SCH (07:15)
[2024-02-07 08:28] LABS: HEMATOCRIT 29.1 % (35.4-49); HEMOGLOBIN 9.8 GM/dL (11.7-16.9); MCH 32.8 pg (25.7-33.7); MCHC 33.7 g/dl (32.0-35.9); MEAN CELL VOLUME 97.4 fl (80-96); MEAN PLT VOLUME 8.3 fl (7.5-11.1); PLATELET COUNT 211 10^3/uL (134-434); RBC 2.99 M/mm3 (4.00-5.60); RDW 14.4 % (11.9-15.9); WHITE BLOOD COUNT 5.2 K/mm3 (4.0-10.0)
[2024-02-07 08:29] LABS: ALBUMIN 2.3 g/dl (3.4-5.0); BLOOD UREA NITROGEN 16.7 mg/dL (7-18); CALCIUM 7.8 mg/dL (8.5-10.1)
[2024-02-07 08:30] LABS: MAGNESIUM 1.9 mg/dL (1.8-2.4)
[2024-02-07] MEDS ORDERED: MAGNESIUM 2GM/50ML STERILE WATER IVPB IVPB ONE (08:30)
[2024-02-07 08:32] LABS: CREATININE 0.6 mg/dL (0.55-1.3)
[2024-02-07 08:33] LABS: PHOSPHOROUS 2.7 mg/dL (2.5-4.9)
[2024-02-07 08:34] LABS: BILIRUBIN,TOTAL 0.5 mg/dL (0.2-1); TOT PROT 5.6 g/dl (6.4-8.2)
[2024-02-07 09:01] LABS: RETICULOCYTES 2.77 % (0.5-1.5)
[2024-02-07] MEDS: FINASTERIDE 5 MG TABLET (FP) PO SCH (11:21)
[2024-02-07] MEDS: TAMSULOSIN HCL 0.4 MG CAP PO SCH (11:22)
[2024-02-07] MEDS: ENALAPRIL MALEATE 10 MG TABLET PO SCH (11:22)
[2024-02-07] MEDS: ESCITALOPRAM OXALATE 10 MG TABLET PO SCH (11:22)
[2024-02-07] MEDS: MAGNESIUM 2GM/50ML STERILE WATER IVPB IVPB ONE (11:23)
[2024-02-07] MEDS: POTASSIUM CHLORIDE TABS 20 MEQ TABLET.ER (FP) PO ONE (12:04)
[2024-02-07] MEDS: HEPARIN NA (PORCINE) 5,000 UNITS/ML 1ML VIAL IVPUSH PRN (15:29)
[2024-02-07 17:18] LABS: POTASSIUM 3.2 mmol/L (3.5-5.1)
[2024-02-07 17:23] LABS: BLOOD UREA NITROGEN 15.3 mg/dL (7-18); CALCIUM 8.1 mg/dL (8.5-10.1); MAGNESIUM 2.4 mg/dL (1.8-2.4)
[2024-02-07 17:26] LABS: CREATININE 0.6 mg/dL (0.55-1.3)
[2024-02-07 17:27] LABS: PHOSPHOROUS 2.6 mg/dL (2.5-4.9)
[2024-02-07] MEDS: POTASSIUM CHLORIDE TABS 20 MEQ TABLET.ER (FP) PO SCH (21:32)
[2024-02-07] MEDS: MAGNESIUM OXIDE 400 MG TABLET (FP) PO SCH (21:32)
[2024-02-07] MEDS: ENOXAPARIN NA (PORCINE) 60 MG/0.6 ML DISP.SYRIN SQ SCH (21:32)
[2024-02-07] MEDS ORDERED: ENOXAPARIN NA (PORCINE) 60 MG/0.6 ML DISP.SYRIN SQ SCH ×2 (22:00)
[2024-02-08 07:24] LABS: POTASSIUM 3.9 mmol/L (3.5-5.1)
[2024-02-08 07:37] LABS: ALBUMIN 2.1 g/dl (3.4-5.0); BLOOD UREA NITROGEN 17.5 mg/dL (7-18); CALCIUM 7.9 mg/dL (8.5-10.1); MAGNESIUM 2.2 mg/dL (1.8-2.4)
[2024-02-08 07:40] LABS: CREATININE 0.6 mg/dL (0.55-1.3)
[2024-02-08 07:41] LABS: PHOSPHOROUS 2.5 mg/dL (2.5-4.9)
[2024-02-08 07:42] LABS: BILIRUBIN,TOTAL 0.4 mg/dL (0.2-1); TOT PROT 5.2 g/dl (6.4-8.2)
[2024-02-08] MEDS: NAPH,MB-DB/K PH,MBDB POWDER PACKET PO SCH (09:44)
[2024-02-08] MEDS: SIMETHICONE 80 MG TAB.CHEW (FP) PO PRN (10:48)
[2024-02-09 07:09] LABS: HEMATOCRIT 29.4 % (35.4-49); HEMOGLOBIN 9.8 GM/dL (11.7-16.9); MCH 32.6 pg (25.7-33.7); MCHC 33.4 g/dl (32.0-35.9); MEAN CELL VOLUME 97.7 fl (80-96); PLATELET COUNT 203 10^3/uL (134-434); RBC 3.01 M/mm3 (4.00-5.60); RDW 14.2 % (11.9-15.9); WHITE BLOOD COUNT 4.7 K/mm3 (4.0-10.0)
[2024-02-09 07:29] LABS: POTASSIUM 4.5 mmol/L (3.5-5.1)
[2024-02-09 07:34] LABS: ALBUMIN 2.2 g/dl (3.4-5.0); CALCIUM 8.1 mg/dL (8.5-10.1); MAGNESIUM 2.1 mg/dL (1.8-2.4)
[2024-02-09 07:35] LABS: BLOOD UREA NITROGEN 16.6 mg/dL (7-18); CREATININE 0.6 mg/dL (0.55-1.3)
[2024-02-09 07:37] LABS: TOT PROT 5.4 g/dl (6.4-8.2)
[2024-02-09 07:39] LABS: BILIRUBIN,TOTAL 0.5 mg/dL (0.2-1)
[2024-02-09 07:40] LABS: PHOSPHOROUS 2.6 mg/dL (2.5-4.9)
[2024-02-09] MEDS: ASCORBIC ACID 250 MG TABLET (FP) PO SCH (10:07)
[2024-02-09] MEDS: MULTIVITAMINS (DAILY MVI) TABLET (FP) PO SCH (10:07)
[2024-02-09 10:09] VITALS: BMI 20.9
[2024-02-09] MEDS: APIXABAN 5 MG TABLET PO SCH (21:32)
[2024-02-10 07:15] LABS: POTASSIUM 4.5 mmol/L (3.5-5.1)
[2024-02-10 07:17] LABS: ALBUMIN 2.3 g/dl (3.4-5.0); CALCIUM 8.3 mg/dL (8.5-10.1)
[2024-02-10 07:18] LABS: BLOOD UREA NITROGEN 19.1 mg/dL (7-18)
[2024-02-10 07:20] LABS: CREATININE 0.7 mg/dL (0.55-1.3)
[2024-02-10 07:22] LABS: BILIRUBIN,TOTAL 0.4 mg/dL (0.2-1); TOT PROT 5.7 g/dl (6.4-8.2)
[2024-02-11 16:03] VITALS: BP 101/57; PULSE 84; RESP 18; TEMP 97.2
== END 2024-02-11 13:24 | disposition home or self-care (01) | DRG 175 ==
LOC: FER 10:15 → FM/S 15:29 → J4W 21:37
PROVIDERS: ADMIT Internal Medicine; ATTEND Student in an Organized Health Care Education/Training Program
DX: I26.99 Other pulmonary embolism without acute cor pulmonale (principal); E43 Unspecified severe protein-calorie malnutrition; I45.2 Bifascicular block; I82.411 Acute embolism and thrombosis of right femoral vein; J90 Pleural effusion, not elsewhere classified; K59.39 Other megacolon; I50.32 Chronic diastolic (congestive) heart failure; J98.11 Atelectasis; I11.0 Hypertensive heart disease with heart failure; E03.9 Hypothyroidism, unspecified; I35.1 Nonrheumatic aortic (valve) insufficiency; N40.0 Benign prostatic hyperplasia without lower urinary tract symptoms; Z85.51 Personal history of malignant neoplasm of bladder; Z68.21 Body mass index [BMI] 21.0-21.9, adult
CPT/HCPCS: 36415; 71045-TC-FY; 71275-TC; 74018-TC-FY; 74177-TC; 80048; 80053; 81003; 81015; 82272; 82306; 82607; 82728; 82746; 82962; 83036; 83540; 83550; 83690; 83735; 83880; 84100; 84132; 84439; 84443; 84484; 85025; 85027; 85045; 85379; 85610; 85730; 86803; 87086; 87389; 93005; 93306-TC; 93970-TC; 94010; 97116-GP; 97162-GP; 99285-25; 99291; G0378; J1644; Q9967